=== PATIENT | male | born 1950 | race Two or more races ===

== ENCOUNTER 2024-08-18 07:44 | Emergency (ER) | payer OTHER ==
[~2024-08-18] VITALS: Ht 172.7 cm; Wt 105.3 kg
--- NOTE | 2024-08-18 08:14 | ECG ---
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
--- NOTE | 2024-08-18 08:17 | ED.PDOC ---
History of Present Illness HPI Comments 74 year old male presents to the ED with a chief complaint of generalized weakness onset 3 days. Patient states he has been experiencing generalized weakness as well as chest pain, abdominal pain, chest pain, blood in stool for the past 3 days. Patient tries walking from bed to restroom, notices he feels muscle aches, feels weak and noticed chest pain worsens with movement. PMHx DM. Denies nausea, vomiting, diarrhea, dizziness, headache, blurry vision, dysuria, hematuria, fever, chills. No other symptoms or modifying factors present at this time. Chief Complaint: General Weakness Time Seen by MD: 08:02 Primary Care Provider: none Reviewed Notes: Medications, Allergies Allergies: Coded Allergies: NO KNOWN ALLERGIES (Unverified , 08/18/24) Information Source: Patient Mode of Arrival: Ambulatory Severity: Moderate Timing: Days Duration: Since onset Prehospital treatment: None Past Medical History PAST MEDICAL HISTORY: DM Surgical History: Denies all surgeries Family History Family History: Reviewed,noncontributory to illness, No family hx of Cancer, No family hx of DM, No family hx of Heart jennifer, No family hx of HTN, No family hx ofKidney jennifer, No family hx of Liver jennifer, No family hx of Lung jennifer, No family hx of Stroke Social History Smoker: Non-Smoker Alcohol: Denies ETOH Use Drugs: Denies Drug Use Lives In: Home Constitutional: reports: weakness; denies: chills, diaphoresis, fatigue, fever, malaise, sweats, others EENTM: denies: blurred vision, double vision, ear bleeding, ear discharge, ear drainage, ear pain, ear ringing, eye pain, eye redness, hearing loss, mouth pain, mouth swelling, nasal discharge, nose bleeding, nose congestion, nose pain, photophobia, tearing, throat pain, throat swelling, voice changes, others Respiratory: denies: cough, hemoptysis, orthopnea, SOB at rest, shortness of breath, SOB with excertion, stridor, wheezing, others Cardiovascular: reports: chest pain; denies: dizzy spells, diaphoresis, Dyspnea on exertion, edema, irregular heart beat, left arm pain, lightheadedness, palpitations, PND, syncope, others Gastrointestinal: reports: abdominal pain, rectal bleeding; denies: abdomen distended, blood streaked bowels, constipated, diarrhea, dysphagia, difficulty swallowing, hematemesis, melena, nausea, poor appetite, poor fluid intake, rectal pain, vomiting, others Genitourinary: denies: burning, dysuria, flank pain, frequency, hematuria, incontinence, penile discharge, penile sore, pain, testicle pain, testicle swelling, urgency, others Neurological: reports: weakness; denies: dizziness, fainting, headache, left sided numbness, left sided weakness, numbness, paresthesia, pre-existing deficit, right sided numbness, right sided weakness, seizure, speech problems, tingling, tremors, others Musculoskeletal: denies: back pain, gout, joint pain, joint swelling, muscle pain, muscle stiffness, neck pain, others Integumetry: denies: bruises, change in color, change in hair/nails, dryness, laceration, lesions, lumps, rash, wounds, others Allergic/Immunocompromised: denies: Difficulty Healing, Frequent Infections, Hives, Itching, others Hematologic/Lymphatic: denies: anemia, blood clots, easy bleeding, easy bruising, swollen glands, others Endocrine: denies: excessive hunger, excessive sweating, excessive thirst, excessive urination, flushing, intolerance to cold, intolerance to heat, unexplained weight gain, unexplained weight loss, others Psychiatric: denies: anxiety, bipolar disorder, depression, hopeless, panic disorder, schizophrenia, sleepless, suicidal, others All Other Systems: Reviewed and Negative Physical Exam General Appearance: Moderate Distress, Normal, Other (weak appearing ) HEENT: Normal ENT Inspection, Pharynx Normal, TMs Normal Neck: Full Range of Motion, Non-Tender, Normal, Normal Inspection Respiratory: Chest Non-Tender, Lungs Clear, No Accessory Muscle Use, No Respiratory Distress, Normal Breath Sounds Cardiovascular: No Edema, No JVD, No Murmur, No Gallop, Normal Peripheral Pulses, Regular Rate/Rhythm Breast Exam: Deferred Gastrointestinal: No Organomegaly, Non Tender, No Pulsatile Mass, Normal Bowel Sounds, Soft Genitalia: Deferred Pelvic: Deferred Rectal: Deferred Extremities: No calf tenderness, Normal capillary refill, Normal inspection, Normal range of motion, Non-tender, No pedal edema Musculoskeletal : Apperance: Normal Neurologic: Alert, adjuster and inspector II-XII nml as Tested, Motor Weakness, No Sensory Deficits Cerebellar Function: Normal Reflexes: Normal Skin: Dry, Normal Color, Warm Lymphatic: No Adenopathy Was a procedure done? Was a procedure done?: No Differential Dx Considerations may include: uti, viral syndrome, pneumonia, electrolyte abnormality X-Ray, Labs, Meds, VS Vital Signs Date Time Temp Pulse Resp B/P (MAP) Pulse Ox O2 Delivery O2 Flow Rate FiO2 08/18/24 14:22 97.5 87 18 186/88 (120) 96 97.5 08/18/24 09:20 94 18 155/89 (111) 95 08/18/24 09:20 94 18 95 Room Air* 0 21 08/18/24 08:08 97.4 93 18 131/98 (109) 96 97.4 08/18/24 07:57 94 Lab Test 08/18/24 11:35 08/18/24 09:29 08/18/24 08:22 08/18/24 08:05 Range/Units Troponin I High Sensitivity 4 3 L 4 </=54 ng/L White Blood Count 17.1 H 4.4-10.8 10^3/uL Red Blood Count 4.37 L 4.5-5.90 10^6/uL Hemoglobin 13.1 L 13.5-17.5 g/dL Hematocrit 37.9 L 41.0-53.0 % Mean Corpuscular Volume 86.7 80.0-100.0 fL Mean Corpuscular Hemoglobin 30.0 28.0-32.0 pg Mean Corpuscular Hemoglobin Concent 34.6 32.0-36.0 g/dL Red Cell Distribution Width 13.4 11.8-14.3 % Platelet Count 288 140-450 10^3/uL Mean Platelet Volume 8.8 6.9-10.8 fL Neutrophils (%) (Auto) 82.5 H 37.0-80.0 % Lymphocytes (%) (Auto) 11.0 10.0-50.0 % Monocytes (%) (Auto) 5.7 0.0-12.0 % Eosinophils (%) (Auto) 0.2 0.0-7.0 % Basophils (%) (Auto) 0.6 0.0-2.0 % Neutrophils # (Auto) 14.1 H 1.6-8.6 10 ^3/uL Lymphocytes # (Auto) 1.9 0.4-5.4 10 ^3/uL Monocytes # (Auto) 1.0 0-1.3 10 ^3/uL Eosinophils # (Auto) 0 0-0.8 10 ^3/uL Basophils # (Auto) 0.1 0-0.2 10 ^3/uL Nucleated Red Blood Cells 0.1 % Sodium Level 134 L 136-145 mmol/L Potassium Level 3.7 3.5-5.1 mmol/L Chloride Level 104 98-107 mmol/L Carbon Dioxide Level 23 20-31 mmol/L Anion Gap 7 5-15 Blood Urea Nitrogen 23 9-23 mg/dL Creatinine 1.18 0.700-1.30 mg/dL Glomerular Filtration Rate Calc 64 >90 mL/min BUN/Creatinine Ratio 19.5 10.0-20.0 Serum Glucose 268 H 74-106 mg/dL Calcium Level 10.0 8.7-10.4 mg/dL POC Glucose 262 H 70-106 mg/dl Current Medications Medications (Trade) Dose Ordered Sig/Wendy Route Start Time Stop Time Status Last Admin Ceftriaxone Sodium 50 ml @ 100 mls/hr ONCE ONCE IV 08/18/24 14:00 08/18/24 14:29 DC 08/18/24 14:20 [place] [id number] Ph: [phone] DIAGNOSTIC IMAGING Diagnostic Imaging Report : [id number] Signed PATIENT: LEEANN TAPIA ACCT: [id number] UNIT: [id number] : 1950 LOC: ER ROOM / BED: / AGE / SEX: 74 / M ADM STATUS: REG ER SERVICE [id number] ORDERING PHYSICIAN: STAN COLES MD PROCEDURE(s): CXRP - CHEST PORTABLE REASON: weakness ORDER NUMBER(s): [id number], ACCESSION NUMBER(s): [id number] CHEST RADIOGRAPH Indication: weakness Technique: Single frontal view of the chest was obtained COMPARISON: None FINDINGS: Lines and Tubes: None Lungs: Clear Pleura: No effusion. No pneumothorax. Cardiomediastinal contours: Unremarkable Bones: Unremarkable IMPRESSION: No acute disease. ATED BY: CHRISTOPHER THOMAS MD DICTATED DATE/TIME: 08/18/24840 SIGNED BY: CHRISTOPHER THOMAS MD SIGNED DATE/TIME: 08/18/24840 CC: Time of 1ST Reevaluation: 08:32 Reevaluation 1ST: Unchanged Patient Education/Counseling: Diagnosis, Treatment, Prognosis Family Education/Counseling: No Family Present Additional Information The following tests were ordered, and results were reviewed by me: BMP, CBC, TROP -x3, EKG, XY CHEST, UA I reviewed and agreed with the following test results read by other providers: XY CHEST I discussed treatment and results with medical personnel and: Patient Comprehensive systems review obtained and negative except for what is stated in the HPI. Departure 1 Departure Time of Disposition: 15:44 (Patient's workup so far is concerning only for an elevated white count. Discussed with the patient's primary care doctor who recommends discharge on antibiotics and he evaluate patient tomorrow) Impression: Primary Impression: Weakness Disposition: HOME / SELF CARE / HOMELESS Condition: Stable Additional Instructions: Your workup today appears benign. Out of an abundance of caution you were started on antibiotics. It is important to follow up with your regular doctor tomorrow. e-Prescriptions Levofloxacin Hemihydrate (LEVAQUIN 500 MG) 500 Mg Tab 1 TAB PO BID for 5 Days, #10 TAB Prov: STAN COLES MD 08/18/24 Discharged With: Self Critical Care Note Critical Care Time?: No Stability Stability form required: No I personally scribed for STAN COLES MD ([email or web address]) on 08/18/24 at 08:16. Electronically submitted by Mona Pineda ([email or web address]). I personally scribed for STAN COLES MD ([email or web address]) on 08/18/24 at 08:18. Electronically submitted by Mona Pineda ([email or web address]). I personally scribed for STAN COLES MD ([email or web address]) on 08/18/24 at 09:25. Electronically submitted by Mona Pineda ([email or web address]). STAN COLES MD Aug 18, 2024 08:16
[2024-08-18 08:35] LABS: Basophils # (auto) 0.1 10 ^3/uL (0-0.2); Basophils % (auto) 0.6 % (0.0-2.0); Eosinophils # (auto) 0 10 ^3/uL (0-0.8); Eosinophils % (auto) 0.2 % (0.0-7.0); Hematocrit 37.9 % (41.0-53.0); Hemoglobin 13.1 g/dL (13.5-17.5); Lymphocytes # (auto) 1.9 10 ^3/uL (0.4-5.4); Mean Corpuscular Hgb Conc. 34.6 g/dL (32.0-36.0); Mean Corpuscular Volume 86.7 fL (80.0-100.0); Monocytes % (auto) 5.7 % (0.0-12.0); Neutrophils # (auto) 14.1 10 ^3/uL (1.6-8.6); Neutrophils % (auto) 82.5 % (37.0-80.0); Nucleated Red Blood Cells % 0.1 %; Platelet Count (auto) 288 10^3/uL (140-450); Red Blood Cells 4.37 10^6/uL (4.5-5.90); Red Cell Distribution Width 13.4 % (11.8-14.3); White Blood Cell 17.1 10^3/uL (4.4-10.8)
[2024-08-18 08:42] LABS: Potassium 3.7 mmol/L (3.5-5.1)
[2024-08-18 08:43] LABS: Carbon Dioxide 23 mmol/L (20-31)
--- NOTE | 2024-08-18 08:43 | DVH ---
CHEST RADIOGRAPH Indication: weakness Technique: Single frontal view of the chest was obtained COMPARISON: None FINDINGS: Lines and Tubes: None Lungs: Clear Pleura: No effusion. No pneumothorax. Cardiomediastinal contours: Unremarkable Bones: Unremarkable IMPRESSION: No acute disease.
[2024-08-18 08:48] LABS: BUN/Creatinine Ratio 19.5 (10.0-20.0); Blood Urea Nitrogen 23 mg/dL (9-23)
[2024-08-18 09:07] LABS: Glucose 268 mg/dL (74-106); Sodium 134 mmol/L (136-145)
[2024-08-18 09:13] LABS: Anion Gap 7 (5-15); Chloride 104 mmol/L (98-107)
[2024-08-18 09:20] VITALS: PULSE 94; RESP 18; O2SAT 95
[2024-08-18] MEDS: cefTRIAXone 1GM/50ML D5W 50 ML IV ONE (14:20)
[2024-08-18 14:22] VITALS: BP 186/88; PULSE 87; RESP 18; TEMP 97.5; O2SAT 96
[2024-08-18] MEDS ORDERED: LEVO500T91 PO (15:46)
== END 2024-08-18 15:54 | disposition home or self-care (01) ==
LOC: ER 07:44
DX: R53.1 Weakness (principal); E11.9 Type 2 diabetes mellitus without complications; R07.89 Other chest pain
CPT/HCPCS: 36415; 71045; 80048; 82947; 84484; 85025; 93005; 96365; 99285; J0696; 82962